=== PATIENT | female | born 1955 | race Caucasian/White ===

== ENCOUNTER 2025-01-26 17:59 | Inpatient (IN) | payer MEDICARE, OTHER ==
[~2025-01-26] VITALS: Ht 157.5 cm; Wt 78.0 kg
[2025-01-26 18:55] LABS: EOSINOPHILS % 3.2 % (0.0-5.0); HEMATOCRIT. 35.7 % (36.0-48.0); HEMOGLOBIN. 12.2 g/dL (12.0-16.0); LYMPHOCYTES % 9.1 % (20.0-50.0); MEAN CORPUSCULAR HEMOGLOBIN 31.7 pg (28.0-32.0); MEAN CORPUSCULAR HGB CONC 34.1 g/dL (31.0-37.0); MEAN CORPUSCULAR VOLUME 92.9 fL (81.0-99.0); MEAN PLATELET VOLUME 8.1 fl (7.4-10.4); MONOCYTES % 12.1 % (2.0-8.0); NEUTROPHILS % 74.6 % (40.0-76.0); PLATELET 267 x1000/uL (130-400); RED BLOOD CELL COUNT 3.84 mill/uL (4.2-5.4); RED CELL DISTRIBUTION WIDTH 12.9 % (11.6-14.6); WHITE BLOOD COUNT 7.4 x1000/uL (4.5-11.0)
[2025-01-26 18:59] LABS: CHLORIDE 96 mEq/L (98-107)
[2025-01-26 19:00] LABS: CARBON DIOXIDE 25 mEq/L (21-32); POTASSIUM 3.7 mEq/L (3.5-5.1); SODIUM 128 mEq/L (136-145)
[2025-01-26 19:01] LABS: CALCIUM 9.2 mg/dL (8.7-10.4)
[2025-01-26 19:05] LABS: CREATININE 1.3 mg/dL (0.6-1.0)
[2025-01-26 19:06] LABS: GLUCOSE 221 mg/dL (70-105); UREA NITROGEN BLOOD 26 mg/dL (9-23)
[2025-01-26 19:07] LABS: ALANINE AMINOTRANSFERASE 14 IU/L (10-49); ALBUMIN 4.3 g/dL (3.2-4.8); ASPARTATE AMINOTRANSFERASE 16 IU/L (<34)
[2025-01-26 19:08] LABS: BILIRUBIN DIRECT < 0.1 mg/dL (<=3.0); BILIRUBIN TOTAL 0.3 mg/dL (0.1-1.0); PROTEIN TOTAL 6.9 g/dL (6.0-8.3)
[2025-01-26 21:41] LABS: TROPONIN I HIGH SENSITIVITY 9 ng/L (3.0-34)
[2025-01-26] MEDS ORDERED: ONDANSETRON HCL 4MG/2ML INJ IV PRN (22:45)
[2025-01-26] MEDS ORDERED: NALOXONE HCL 0.4MG/ML VIAL IV PRN ×2 (22:45)
[2025-01-26] MEDS ORDERED: IPRATROPIUM/ALBUTEROL 0.5-3(2.5)MG/3ML NEB HHN PRN (22:45)
[2025-01-26] MEDS: CLONIDINE 0.1MG TABLET PO SCH (23:06)
[2025-01-26] MEDS: HYDROCODONE/ACETAMINOPHEN 5/325MG TABLET PO PRN (23:27)
[2025-01-26] MEDS: CLONIDINE 0.1MG TABLET PO PRN (23:28)
[2025-01-27] VITALS (8 sets, daily range): BP systolic 128–196; BP diastolic 54–90; PULSE 67–89; RESP 16–20; TEMP 36.1–36.8; O2SAT 96–98
[2025-01-27 00:58] LABS: CLARITY URINE CLEAR (CLEAR); COLOR URINE YELLOW (YELLOW); GLUCOSE URINE TRACE (NEGATIVE); KETONES URINE NEGATIVE (NEGATIVE); LEUKOCYTE ESTERASE URINE NEGATIVE (NEGATIVE); NITRITE URINE NEGATIVE (NEGATIVE); OCCULT BLOOD URINE NEGATIVE (NEGATIVE); PH URINE 6.5 (4.5-8.0); PROTEIN URINE NEGATIVE (NEGATIVE); SPECIFIC GRAVITY URINE 1.008 (1.005-1.030); UROBILINOGEN URINE 0.2 E.U./dL (0.2-1.0)
[2025-01-27] MEDS ORDERED: DEXTROSE 50% WATER 50ML SYRINGE IV PRN (03:00)
[2025-01-27 03:54] LABS: BACTERIA URINE NONE SEEN; RBC URINE 0-2 /hpf (0-2); SQUAMOUS EPITHELIAL CELL URINE NONE SEEN /lpf (RARE/1+); WBC URINE 0-2 /hpf (0-2)
[2025-01-27] MEDS ORDERED: DILT-104 PO (04:39)
[2025-01-27] MEDS ORDERED: HYDR25TA PO (04:39)
[2025-01-27] MEDS ORDERED: LOSA100T33 PO (04:39)
[2025-01-27] MEDS ORDERED: METF-414 PO (04:39)
[2025-01-27] MEDS ORDERED: GLIP5TAB22 PO (04:39)
[2025-01-27] MEDS ORDERED: OMEP20TA23 PO (04:40)
[2025-01-27] MEDS: BLOOD SUGAR DIAGNOSTIC STRIP TEST SCH (06:41)
[2025-01-27] MEDS: INSULIN LISPRO 100 UNITS/ML SUBCUT SCH (06:46)
[2025-01-27 08:34] LABS: CREATINE KINASE MB FRACTION 0.9 ng/mL (0.5-3.6)
[2025-01-27] MEDS: LOSARTAN 50 MG TABLET PO SCH (09:45)
[2025-01-27] MEDS: ENOXAPARIN 40MG/0.4ML SYR SUBCUT SCH (09:47)
[2025-01-27] MEDS: LEVOFLOXACIN 750MG PREMIX 150 ML IV SCH (12:36)
[2025-01-27] MEDS ORDERED: P20 MT (16:36)
[2025-01-27] MEDS ORDERED: LEVO750T68 MT (16:36)
[2025-01-27] MEDS ORDERED: ALBU90AE INH (16:37)
[2025-01-27] MEDS ORDERED: ACETAMINOPHEN 325MG TABLET PO PRN (16:45)
[2025-01-27] MEDS ORDERED: LABETALOL 5MG/ML 4ML INJ IV ONE (20:24)
[2025-01-27] MEDS: LABETALOL 5MG/ML 4ML INJ IV PRN (20:31)
[2025-01-27] MEDS ORDERED: *PATIENT'S OWN MEDICATION STORAGE XX SCH (21:15)
== END 2025-01-27 21:12 | disposition home or self-care (01) | DRG 305 ==
LOC: ER 17:59 → 8WST 20:45 → EDBEDREQTM 20:50 → EDBEDREQ 20:50 → ENRESERV 21:32
PROVIDERS: ADMIT Internal Medicine; ATTEND Internal Medicine
DX: I16.0 Hypertensive urgency (principal); E87.1 Hypo-osmolality and hyponatremia; N17.9 Acute kidney failure, unspecified; J06.9 Acute upper respiratory infection, unspecified; M54.9 Dorsalgia, unspecified; E11.9 Type 2 diabetes mellitus without complications; I10 Essential (primary) hypertension; J40 Bronchitis, not specified as acute or chronic; Z88.0 Allergy status to penicillin
CPT/HCPCS: 36415; 71045; 74176; 80048; 80076; 81003; 82550; 82553; 82962; 83036; 83880; 84484; 85025; 85379; 93005; 99285; A4606; J1650; J1815; J1956; J3490